=== PATIENT | male | born 1960 | race Caucasian/White ===

== ENCOUNTER 2017-01-01 18:16 | Emergency (ER) | payer BC ==
[2017-01-01 19:25] VITALS: BP 126/70
--- NOTE | 2017-01-01 19:40 | UC ---
Eye Complaint HPI - HPI Summary HPI Summary: 56 yo M with red spot under his right eye. States he was mowing the lawn a few days ago and thought something might have flown up into his eye. His vision is fine and the eye is not painful, just tender at the spot where it is red. Notes the red spot is getting bigger. - History of Current Complaint Chief Complaint: UCEye Stated Complaint: RIGHT EYE COMPLAINT Time Seen by Provider: 01/01/17 19:40 Hx Obtained From: Patient Onset/Duration: Gradual Onset, Lasting Days, Still Present Timing: Constant Severity Initially: Moderate Severity Currently: Moderate Pain Intensity: 3 Pain Scale Used: 0-10 Numeric Location of Injury: Eye Lid (lower) - right Aggravating Factor(s): Nothing Alleviating Factor(s): Nothing Associated Signs And Symptoms: Negative: Drainage (Clear), Drainage (Purulent), Vision Impairment Right - Allergies/Home Medications Allergies/Adverse Reactions: Allergies Allergy/AdvReac Type Severity Reaction Status Date / Time Penicillins Allergy Unknown Verified 06/29/13 08:24 Reaction Details Home Medications: Home Medications Aspirin TAB* [Aspirin 325 MG TAB*] 650 mg PO Q6H PRN 01/01/17 [History Confirmed 01/01/17] Aspirin [Aspirin 81 MG TAB] 81 mg PO DAILY 01/01/17 [History Confirmed 01/01/17] PMH/Surg Hx/FS Hx/Imm Hx Previously Healthy: Yes - Surgical History Surgical History: None - Family History Known Family History: Positive: Hypertension - Social History Alcohol Use: Occasionally Substance Use Type: None Smoking Status (MU): Light Every Day Tobacco Smoker Type: Cigarettes Amount Used/How Often: 1 PK PER WK Length of Time of Smoking/Using Tobacco: 20 YRS Review of Systems Constitutional: Negative Skin: Other - red spot on right lower lid Eyes: Other - red spot on right lower lid ENT: Negative Respiratory: Negative Cardiovascular: Negative Gastrointestinal: Negative Genitourinary: Negative Motor: Negative Neurovascular: Negative Musculoskeletal: Negative Neurological: Negative Psychological: Negative All Other Systems Reviewed And Are Negative: Yes Physical Exam Triage Information Reviewed: Yes Appearance: Well-Appearing, Well-Nourished, Pain Distress Vital Signs: Initial Vital Signs Temp 98.2 F 01/01/17 19:17 Pulse 78 01/01/17 19:17 Resp 16 01/01/17 19:17 BP 126/70 01/01/17 19:17 Pulse Ox 97 01/01/17 19:17 VA noted Vital Signs Reviewed: Yes Eyes: Positive: Conjunctiva Clear, Other: - right lower lid with 3mm red raised area, no "head" ENT: Positive: Normal ENT inspection, Hearing grossly normal. Negative: Muffled /hoarse voice Neck: Positive: Supple, Nontender Respiratory: Positive: Lungs clear, Normal breath sounds, No respiratory distress Cardiovascular: Positive: RRR, No Murmur, Pulses Normal, Brisk Capillary Refill Musculoskeletal: Positive: Strength Intact, ROM Intact Neurological: Positive: Alert, Muscle Tone Normal Psychological Exam: Normal Skin: Positive: significant lesion(s) - right lower lid with red spot Procedures - Eye Procedure Alcaine Drops Administered: Yes Eye FB Removal: other - tetracaine 2 drops: fluorescein stain no abrasion, no FB Eye Complaint Course/Dx - Differential Dx/Diagnosis Differential Diagnosis/HQI/PQRI: Corneal Abrasion, Periorbital Cellulitis, Other - stye Provider Diagnoses: stye right eye Discharge - Discharge Plan Condition: Stable Disposition: HOME Prescriptions: Cephalexin CAP* [Keflex 500 CAP*] 500 mg PO QID #40 cap Patient Education Materials: Stye (ED) Referrals: Dayton Fitzpatrick DO [Primary Care Provider] - Joseph Snyder MD [Medical Doctor] - 2 Days (if no improvement ) Additional Instructions: Use the erythromycin eye ointment as directed 3 times a day for 7 days. If you develop increasing redness around the eye start the oral cephalexin antibiotic, 500mg 4 times a day, and see Dr. Snyder as soon as possible, or return to urgent care.
[2017-01-01] MEDS ORDERED: Fluorescein Sodium TOPICAL* 1 MG TEST OPHTHALMIC ONE (19:41)
[2017-01-01] MEDS ORDERED: Tetracaine 0.5% OPTH.SOL 4 ML* 1 DROP BTL RIGHT EYE ONE (19:42)
[2017-01-01] MEDS ORDERED: Erythromycin OPTH OINT* APPLIC OINT RIGHT EYE ONE (20:21)
[2017-01-01] MEDS ORDERED: Erythromycin TOPICAL GEL* 30 GM TUBE TOPICAL SCH (21:00)
== END 2017-01-01 20:32 | disposition home or self-care (01) ==
LOC: UCCORT 18:16
DX: H00.012 Hordeolum externum right lower eyelid (principal); F17.210 Nicotine dependence, cigarettes, uncomplicated
CPT/HCPCS: 99213; A9270-GY; G0463

== ENCOUNTER 2017-01-12 19:22 | Emergency (ER) | payer BC ==
[2017-01-12 19:41] VITALS: BP 124/68
--- NOTE | 2017-01-12 20:14 | UC ---
Hand/Wrist HPI - HPI Summary HPI Summary: Pain and swelling along the border of R 3rd fingernail for 3-4 days. Has been doing warm soaks but it's not getting better. No pain, redness, or problems up the finger. - History Of Current Complaint Chief Complaint: UCUpperExtremity Stated Complaint: RIGHT MIDDLE FINGER SKIN CONCERN Time Seen by Provider: 01/12/17 19:48 Hx Obtained From: Patient ?: No Onset/Duration: Gradual Onset, Lasting Days Severity Initially: Mild Severity Currently: Mild Character Of Pain: Dull, Aching, Throbbing Alleviating: Nothing Associated Signs And Symptoms: Positive: Swelling, Redness Related History: Dominant Hand Right - Allergies/Home Medications Allergies/Adverse Reactions: Allergies Allergy/AdvReac Type Severity Reaction Status Date / Time Penicillins Allergy Unknown Verified 01/12/17 19:41 Reaction Details Home Medications: Home Medications Naproxen Sodium [Naproxen Sodium 220 mg] 220 mg PO BID PRN 01/12/17 [History Confirmed 01/12/17] PMH/Surg Hx/FS Hx/Imm Hx Previously Healthy: Yes - Surgical History Surgical History: None - Family History Known Family History: Positive: Hypertension - Social History Lives: With Family Alcohol Use: Occasionally Substance Use Type: None Smoking Status (MU): Light Every Day Tobacco Smoker Type: Cigarettes Amount Used/How Often: 1 PK PER WK Length of Time of Smoking/Using Tobacco: 20 YRS Review of Systems Constitutional: Negative Skin: Other - swelling, redness R 3rd finger Eyes: Negative ENT: Negative Respiratory: Negative Cardiovascular: Negative Gastrointestinal: Negative Genitourinary: Negative Motor: Negative Neurovascular: Negative Musculoskeletal: Negative Neurological: Negative Psychological: Negative All Other Systems Reviewed And Are Negative: Yes Physical Exam Triage Information Reviewed: Yes Appearance: Well-Appearing, No Pain Distress, Well-Nourished Vital Signs: Initial Vital Signs Temp 98.7 F 01/12/17 19:36 Pulse 78 01/12/17 19:36 Resp 16 01/12/17 19:36 BP 124/68 01/12/17 19:36 Pulse Ox 97 01/12/17 19:36 Vital Signs Reviewed: Yes Eye Exam: Normal Eyes: Positive: Conjunctiva Clear ENT Exam: Normal ENT: Positive: Normal ENT inspection, Hearing grossly normal, Pharynx normal, TMs normal Dental Exam: Normal Neck exam: Normal Neck: Positive: Supple Respiratory Exam: Normal Respiratory: Positive: Chest non-tender, Lungs clear, Normal breath sounds, No respiratory distress, No accessory muscle use Cardiovascular Exam: Normal Cardiovascular: Positive: RRR Musculoskeletal Exam: Normal Musculoskeletal: Positive: Strength Intact, ROM Intact Neurological Exam: Normal Neurological: Positive: Alert Psychological Exam: Normal Skin Exam: Other - swelling, redness R 3rd fingernail border. Able to express abscess with gently pulling nail away from skin and applying pressure; approx 1mL pus expressed, pt reports relief of pain. No streaking up finger. Hand/Wrist Course/Dx - Differential Dx/Diagnosis Provider Diagnoses: R 3rd finger paronychia. elevated blood pressure due to discomfort Discharge - Discharge Plan Condition: Stable Disposition: HOME Patient Education Materials: Paronychia (ED) Referrals: Dayton Fitzpatrick DO [Primary Care Provider] - Additional Instructions: Because your infection appeared to be isolated to the abscess only (and that is now drained), I expect your symptoms to resolve within a couple days. You can do warm soapy soaks for 15 minutes up to every 2 hours to hasten your healing.
== END 2017-01-12 20:09 | disposition home or self-care (01) ==
LOC: UCCORT 19:22
DX: L03.011 Cellulitis of right finger (principal); R03.0 Elevated blood-pressure reading, without diagnosis of hypertension; Z88.0 Allergy status to penicillin; F17.210 Nicotine dependence, cigarettes, uncomplicated
CPT/HCPCS: 99211; G0463